=== PATIENT | male | born 1955 | race Two or more races ===

== ENCOUNTER 2020-01-29 14:36 | Emergency (ER) | payer SELFPAY ==
[~2020-01-29] VITALS: Ht 188 cm; Wt 100.0 kg
[2020-01-29 14:39] VITALS: BP 134/89
== END 2020-01-29 14:59 | disposition left against medical advice (07) ==
LOC: ER 14:36
DX: Z53.21 Procedure and treatment not carried out due to patient leaving prior to being seen by health care provider (principal); R06.02 Shortness of breath
CPT/HCPCS: 93005